=== PATIENT | male | born 1945 | race Caucasian/White ===

== ENCOUNTER 2025-06-16 13:11 | Outpatient (CLI) | payer MEDICARE, SELFPAY | END 2025-06-16 13:12 | disposition home or self-care (01) | LOC: WOUND 13:20 | PROVIDERS: Visit Provider Nurse Practitioner Family | DX: I87.312 Chronic venous hypertension (idiopathic) with ulcer of left lower extremity (principal); L97.322 Non-pressure chronic ulcer of left ankle with fat layer exposed; R73.03 Prediabetes | CPT/HCPCS: 11042; G0463 ==

== ENCOUNTER 2025-06-23 13:06 | Outpatient (CLI) | payer MEDICARE, SELFPAY | END 2025-06-23 13:07 | disposition home or self-care (01) | LOC: WOUND 13:06 | PROVIDERS: Visit Provider Nurse Practitioner Family | DX: I87.312 Chronic venous hypertension (idiopathic) with ulcer of left lower extremity (principal); L97.322 Non-pressure chronic ulcer of left ankle with fat layer exposed; R73.03 Prediabetes | CPT/HCPCS: 11042 ==

== ENCOUNTER 2025-06-30 13:23 | Outpatient (CLI) | payer MEDICARE, SELFPAY | END 2025-06-30 13:24 | disposition home or self-care (01) | LOC: WOUND 13:23 | PROVIDERS: Visit Provider Nurse Practitioner Family | DX: I87.312 Chronic venous hypertension (idiopathic) with ulcer of left lower extremity (principal); L97.322 Non-pressure chronic ulcer of left ankle with fat layer exposed; R73.03 Prediabetes | CPT/HCPCS: 11042 ==

== ENCOUNTER 2025-07-07 13:13 | Outpatient (CLI) | payer MEDICARE, SELFPAY | END 2025-07-07 13:14 | disposition home or self-care (01) | LOC: WOUND 13:13 | DX: I87.312 Chronic venous hypertension (idiopathic) with ulcer of left lower extremity (principal); I89.0 Lymphedema, not elsewhere classified; L97.322 Non-pressure chronic ulcer of left ankle with fat layer exposed; R73.03 Prediabetes | CPT/HCPCS: 11042 ==

== ENCOUNTER 2025-07-14 13:40 | Outpatient (CLI) | payer MEDICARE, SELFPAY | END 2025-07-14 13:41 | disposition home or self-care (01) | LOC: WOUND 13:40 | PROVIDERS: Visit Provider Nurse Practitioner Family | DX: I87.312 Chronic venous hypertension (idiopathic) with ulcer of left lower extremity (principal); I89.0 Lymphedema, not elsewhere classified; L97.322 Non-pressure chronic ulcer of left ankle with fat layer exposed; R73.03 Prediabetes | CPT/HCPCS: 97597 ==

== ENCOUNTER 2025-07-21 13:18 | Outpatient (CLI) | payer MEDICARE, SELFPAY | END 2025-07-21 13:19 | disposition home or self-care (01) | LOC: WOUND 13:18 | PROVIDERS: Visit Provider Nurse Practitioner Family | DX: I87.312 Chronic venous hypertension (idiopathic) with ulcer of left lower extremity (principal); I89.0 Lymphedema, not elsewhere classified; L97.322 Non-pressure chronic ulcer of left ankle with fat layer exposed; R73.03 Prediabetes | CPT/HCPCS: 11042 ==

== ENCOUNTER 2025-07-28 13:31 | Outpatient (CLI) | payer MEDICARE, SELFPAY | END 2025-07-28 13:32 | disposition home or self-care (01) | LOC: WOUND 13:31 | DX: I87.312 Chronic venous hypertension (idiopathic) with ulcer of left lower extremity (principal); I89.0 Lymphedema, not elsewhere classified; L97.322 Non-pressure chronic ulcer of left ankle with fat layer exposed; R73.03 Prediabetes | CPT/HCPCS: 97597 ==

== ENCOUNTER 2025-08-04 13:17 | Outpatient (CLI) | payer MEDICARE, SELFPAY | END 2025-08-04 13:18 | disposition home or self-care (01) | LOC: WOUND 13:17 | DX: I87.312 Chronic venous hypertension (idiopathic) with ulcer of left lower extremity (principal); I89.0 Lymphedema, not elsewhere classified; L97.322 Non-pressure chronic ulcer of left ankle with fat layer exposed; R73.03 Prediabetes | CPT/HCPCS: 11042 ==

== ENCOUNTER 2025-08-11 13:13 | Outpatient (CLI) | payer MEDICARE, SELFPAY | END 2025-08-11 13:14 | disposition home or self-care (01) | LOC: WOUND 13:13 | PROVIDERS: Visit Provider Nurse Practitioner Family | DX: I87.312 Chronic venous hypertension (idiopathic) with ulcer of left lower extremity (principal); I89.0 Lymphedema, not elsewhere classified; L97.322 Non-pressure chronic ulcer of left ankle with fat layer exposed; R73.03 Prediabetes | CPT/HCPCS: 11042 ==

== ENCOUNTER 2025-08-18 13:26 | Outpatient (CLI) | payer MEDICARE, SELFPAY | END 2025-08-18 13:27 | disposition home or self-care (01) | LOC: WOUND 13:26 | PROVIDERS: Visit Provider Nurse Practitioner Family | DX: I87.312 Chronic venous hypertension (idiopathic) with ulcer of left lower extremity (principal); I89.0 Lymphedema, not elsewhere classified; L97.322 Non-pressure chronic ulcer of left ankle with fat layer exposed; R73.03 Prediabetes | CPT/HCPCS: 11042 ==

== ENCOUNTER 2025-08-25 13:08 | Outpatient (CLI) | payer MEDICARE, SELFPAY | END 2025-08-25 13:09 | disposition home or self-care (01) | LOC: WOUND 13:08 | PROVIDERS: Visit Provider Nurse Practitioner Family | DX: I87.312 Chronic venous hypertension (idiopathic) with ulcer of left lower extremity (principal); L97.322 Non-pressure chronic ulcer of left ankle with fat layer exposed; I89.0 Lymphedema, not elsewhere classified; R73.03 Prediabetes | CPT/HCPCS: 11042 ==

== ENCOUNTER 2025-09-01 13:11 | Outpatient (CLI) | payer MEDICARE, SELFPAY | END 2025-09-01 13:12 | disposition home or self-care (01) | LOC: WOUND 13:11 | PROVIDERS: Visit Provider Nurse Practitioner Family | DX: I87.312 Chronic venous hypertension (idiopathic) with ulcer of left lower extremity (principal); I89.0 Lymphedema, not elsewhere classified; L97.322 Non-pressure chronic ulcer of left ankle with fat layer exposed; R73.03 Prediabetes | CPT/HCPCS: 11042 ==

== ENCOUNTER 2025-09-06 13:19 | Outpatient (CLI) | payer MEDICARE, SELFPAY | END 2025-09-06 13:20 | disposition home or self-care (01) | LOC: WOUND 13:19 | PROVIDERS: Visit Provider Nurse Practitioner Family | DX: I87.312 Chronic venous hypertension (idiopathic) with ulcer of left lower extremity (principal); I89.0 Lymphedema, not elsewhere classified; L97.322 Non-pressure chronic ulcer of left ankle with fat layer exposed; R73.03 Prediabetes | CPT/HCPCS: 97597 ==

== ENCOUNTER 2025-09-15 13:15 | Outpatient (CLI) | payer MEDICARE, SELFPAY | END 2025-09-15 13:16 | disposition home or self-care (01) | LOC: WOUND 13:15 | PROVIDERS: Visit Provider Nurse Practitioner Family | DX: I87.312 Chronic venous hypertension (idiopathic) with ulcer of left lower extremity (principal); I89.0 Lymphedema, not elsewhere classified; L97.322 Non-pressure chronic ulcer of left ankle with fat layer exposed; R73.03 Prediabetes | CPT/HCPCS: 11042 ==